=== PATIENT | female | born 1935 | race Caucasian/White ===

== ENCOUNTER → 2021-08-06 | Outpatient (CLI) | payer MEDICARE ==
[~2021-08-06] MED LIST: CELEBREX 200MG200 MG PO; ECOTRIN81 MG PO; ELIQUIS2.5 MG PO; IMDUR ER TAB 3030 MG PO; IMDUR PO; NITROSTAT0.4 MG SL; PERCOCET 10-321 EACH PO; PRAVACHOL40 MG PO; TENORMIN 50 MG50 MG PO; [UNRECOGNIZED DRUG - OTHER] PO
== END ==
LOC: HEART CORB 08:30
DX: I25.10 Atherosclerotic heart disease of native coronary artery without angina pectoris (principal); R07.2 Precordial pain; I10 Essential (primary) hypertension; E78.5 Hyperlipidemia, unspecified; Z95.5 Presence of coronary angioplasty implant and graft
CPT/HCPCS: 78452; A9502; J2785

== ENCOUNTER → 2021-10-28 | Outpatient (CLI) | payer MEDICARE ==
[~2021-10-28] MED LIST changes: +DODEX1000 MCG/1 IM; +ISOSORBIDE MONO60 MG PO
[2021-10-28 11:10] LABS: HEMOGLOBIN 12.9 gm/dl (12.3-15.3); RED BLOOD COUNT 4.61 M/UL (4.00-5.10); WHITE BLOOD COUNT 5.7 K/UL (4.5-11.0)
[2021-10-28 11:40] LABS: BUN/CREATININE RATIO 32 (0-10)
== END ==
LOC: OPSV2 10:00 → EDSTATUS 10:00 → OPSV2 10:20
PROVIDERS: Orthopaedic Surgery
DX: Z01.818 Encounter for other preprocedural examination (principal)
CPT/HCPCS: 71046; 80048; 85027

== ENCOUNTER → 2021-11-16 | Outpatient (CLI) | payer MEDICARE ==
[~2021-11-16] MED LIST changes: +CELECOXIB200 MG PO; +CETIRIZINE HCL10 MG PO; +CYCLOBENZAPRINE10 MG PO; +NITROGLYCERIN0.4 MG SL; +OXYCODON-ACETA1 EAC1 PO; -PRAVACHOL40 MG PO; +PRAVASTATIN SOD40 MG PO; +PRESERVISION A1 EACH PO; +TRAMADOL HCL50 MG PO; +VITAMIN D21250 MCG PO; +ZOFRAN 4 MG TAB4 MG PO
[2021-11-16 12:34] LABS: BUN/CREATININE RATIO 24 (0-10)
== END ==
LOC: LAB 11:44
PROVIDERS: Orthopaedic Surgery
DX: Z01.812 Encounter for preprocedural laboratory examination (principal)
CPT/HCPCS: 36415; 80048; 86850; 86900; 86901

== ENCOUNTER 2021-11-17 06:07 | Day surgery (SDC) | payer MEDICARE ==
[~2021-11-17] VITALS: Ht 167.6 cm; Wt 77.6 kg
[~2021-11-17 06:07] MED LIST changes: -CELECOXIB200 MG PO; -CETIRIZINE HCL10 MG PO; -NITROGLYCERIN0.4 MG SL; -PRESERVISION A1 EACH PO; -TRAMADOL HCL50 MG PO; -VITAMIN D21250 MCG PO
[2021-11-17] MEDS ORDERED: VITAMIN D21250 MCG PO (17:09)
[2021-11-17] MEDS ORDERED: NITROGLYCERIN0.4 MG SL (17:11)
[2021-11-17] MEDS ORDERED: CETIRIZINE HCL10 MG PO (17:15)
[2021-11-17] MEDS ORDERED: TRAMADOL HCL50 MG PO (17:16)
[2021-11-17] MEDS ORDERED: CELECOXIB200 MG PO (17:17)
[2021-11-17] MEDS ORDERED: PRESERVISION A1 EACH PO (17:18)
[2021-11-18 02:49] LABS: HEMOGLOBIN 11.6 gm/dl (12.3-15.3); RED BLOOD COUNT 4.18 M/UL (4.00-5.10); WHITE BLOOD COUNT 9.9 K/UL (4.5-11.0)
[2021-11-18 03:35] LABS: BUN/CREATININE RATIO 22 (0-10)
== END 2021-11-18 11:32 | disposition home or self-care (01) ==
LOC: M/S 06:07 → OR 06:07 → M/S 13:54 → OR 11-18 11:32
PROVIDERS: Orthopaedic Surgery
DX: M17.11 Unilateral primary osteoarthritis, right knee (principal); I10 Essential (primary) hypertension; E78.5 Hyperlipidemia, unspecified; Z88.0 Allergy status to penicillin; Z79.01 Long term (current) use of anticoagulants; Z79.82 Long term (current) use of aspirin; Z79.899 Other long term (current) drug therapy
CPT/HCPCS: 73560; 80048; 85027; 97116-GP-CQ; 97162; 97166; 97530; 97535; C1713; C1776; J0171; J0690; J1100; J1885; J2001; J2274; J2405; J2704; J2795; J3010; J3370; J3420